=== PATIENT | female | born 1995 | race Caucasian/White ===

== ENCOUNTER 2022-11-21 14:30 | Day surgery (SDC) | payer OTHER ==
[2022-11-21] MEDS ORDERED: hydrALAZINE 20 MG/ML VIAL SLOW IVP PRN (15:03)
[2022-11-21 15:15] VITALS: BMI 25.8
[2022-11-21 15:38] LABS: Bilirubin Neg (Negative); Blood, Urine Negative (Negative); Glucose, Urine (Dipstick) Normal (Negative); Ketone, Urine Negative (Negative); Leukocyte Negative (Negative); Nitrite Negative (Negative); Protein, Urine (Dipstick) 15 mg/dl (Neg-Trace); Urobilinogen Normal mg/dL (Less than 2)
[2022-11-21 15:40] LABS: Clarity Hazy (Clear)
[2022-11-21 15:47] LABS: Bacteria/HPF 1+ HPF (None Seen); CAUTI Indications for Culture Pelvic or flank pain; RBC/HPF None Seen HPF (0-3); WBC/HPF 0-3 HPF (0-3)
[2022-11-21 15:49] LABS: Urine Culture Reflex No No
== END 2022-11-21 16:45 | disposition home or self-care (01) ==
LOC: CSHLD/OP 14:30
PROVIDERS: ATTEND Family Medicine
DX: O26.892 Other specified pregnancy related conditions, second trimester (principal); R10.9 Unspecified abdominal pain; Z3A.25 25 weeks gestation of pregnancy; Z79.82 Long term (current) use of aspirin
CPT/HCPCS: 81001; 99282

== ENCOUNTER 2022-11-29 15:44 | Emergency (ER) | payer OTHER ==
[2022-11-29] MEDS ORDERED: Amoxicillin/Potassium Clav 875 MG TAB ONE (16:23)
== END 2022-11-29 16:33 | disposition home or self-care (01) ==
LOC: CSHERS 15:44
DX: O99.612 Diseases of the digestive system complicating pregnancy, second trimester (principal); K04.7 Periapical abscess without sinus; Z3A.26 26 weeks gestation of pregnancy
CPT/HCPCS: 99282

== ENCOUNTER 2023-01-31 13:58 | Day surgery (SDC) | payer OTHER ==
[2023-01-31 14:30] VITALS: BMI 29.8
[2023-01-31] MEDS ORDERED: hydrALAZINE 20 MG/ML VIAL SLOW IVP PRN (15:21)
[2023-01-31] MEDS ORDERED: Cyclobenzaprine 10 MG TAB PO SCH (15:30)
[2023-01-31] MEDS ORDERED: Acetaminophen 500 MG TAB PO SCH (15:30)
[2023-01-31 15:45] LABS: Bilirubin Neg (Negative); Blood, Urine Negative (Negative); Clarity Slightly Cloudy (Clear); Glucose, Urine (Dipstick) Normal (Negative); Ketone, Urine Negative (Negative); Leukocyte 25 (Negative); Nitrite Negative (Negative); Protein, Urine (Dipstick) Negative (Neg-Trace)
[2023-01-31 15:52] LABS: Bacteria/HPF 3+ HPF (None Seen); CAUTI Indications for Culture Pregnancy; RBC/HPF 0-3 HPF (0-3)
[2023-01-31 15:54] LABS: Mucous/LPF 1+ LPF (<2+)
[2023-01-31 15:55] LABS: Urine Culture Reflex Yes Yes
== END 2023-01-31 16:30 | disposition home or self-care (01) ==
LOC: CSHLD/OP 13:58
PROVIDERS: ATTEND Family Medicine
DX: O26.893 Other specified pregnancy related conditions, third trimester (principal); R10.30 Lower abdominal pain, unspecified; M54.9 Dorsalgia, unspecified; O99.613 Diseases of the digestive system complicating pregnancy, third trimester; K21.9 Gastro-esophageal reflux disease without esophagitis; O23.43 Unspecified infection of urinary tract in pregnancy, third trimester; N39.0 Urinary tract infection, site not specified; R11.0 Nausea; Z3A.35 35 weeks gestation of pregnancy
CPT/HCPCS: 81001; 87086; 99283

== ENCOUNTER 2023-02-26 13:42 | Inpatient (IN) | payer OTHER ==
[~2023-02-26 13:42] MED LIST: Bupivacaine 0.25% HCL 30 ML VIAL ONE
[2023-02-26] MEDS ORDERED: Methylergonovine 0.2 MG/ML VIAL IM PRN (20:26)
[2023-02-26] MEDS ORDERED: Tranexamic Acid 1,000 MG/10 ML VIAL IVP PRN (20:26)
[2023-02-26] MEDS ORDERED: Diphenoxylate HCl/Atropine Tablet PO PRN (20:26)
[2023-02-26] MEDS ORDERED: Carboprost 250 MCG/ML AMP IM PRN (20:26)
[2023-02-26] MEDS ORDERED: Ibuprofen 800 MG TAB PO PRN (20:26)
[2023-02-26] MEDS ORDERED: Misoprostol 200 MCG TAB PR PRN (20:26)
[2023-02-26] MEDS ORDERED: hydrALAZINE 20 MG/ML VIAL SLOW IVP PRN (20:26)
[2023-02-26] MEDS ORDERED: Acetaminophen 500 MG TAB PO PRN (20:26)
[2023-02-26] MEDS ORDERED: HYDROcodone/Acetaminophen 5/325 mg Tablet PO PRN (20:26)
[2023-02-26] MEDS ORDERED: Ondansetron PF 4 MG/2 ML Vial IVP PRN (20:26)
[2023-02-26] MEDS ORDERED: Lidocaine 1% (PF) 30 ML VIAL SC PRN (20:26)
[2023-02-26] MEDS ORDERED: Promethazine HCl 25 MG/ML VIAL IM PRN (20:26)
[2023-02-26] MEDS ORDERED: NS w/ Oxytocin 30 units 500 ML IV SCH ×3 (20:30)
[2023-02-26] MEDS ORDERED: fentaNYL 50 mcg/mL 1 mL Vial SLOW IVP PRN (20:34)
[2023-02-26 23:22] LABS: Hemoglobin 7.3 g/dL (12.0-15.5); Mean Corpuscular HGB CONC 29.1 g/dL (32.0-36.0); Mean Corpuscular Hemoglobin 20.2 pg (27.0-33.0); Mean Corpuscular Volume 69.3 fl (81.6-98.3); Mean Platelet Volume 10.7 fl (7.4-10.4); Platelet Count 266 10x3/uL (150-450); RBC Distribution Width 20.6 % (11.5-14.5); Red Blood Cell (RBC) Count 3.62 10x6/uL (3.90-5.03); White Blood Cell (WBC) Count 12.6 10x3/uL (3.5-10.5)
[2023-02-26 23:24] VITALS: BMI 30.3
[2023-02-26 23:39] LABS: Syphilis Antibody Nonreactive (Nonreactive); Syphilis Antibody Index 0.02 S/CO (<1.00 Non-Reactive)
[2023-02-26 23:40] LABS: HBSAg Index 0.13 S/CO (0-0.99); Hep B Surf Ag - L&D Non-Reactive S/CO (NonReactive)
[2023-02-27] MEDS: Misoprostol 100 MCG TAB VAG SCH ×2 (03:06→17:05)
[2023-02-27] MEDS ORDERED: Fentanyl 2 mcg/Bup 0.1% Cadd 100 ML ONE (08:31)
[2023-02-27] MEDS ORDERED: diphenhydrAMINE 50 MG/ML VIAL IVP PRN ×2 (09:04→10:58)
[2023-02-27] MEDS ORDERED: Ondansetron PF 4 MG/2 ML Vial IVP PRN ×3 (09:04→15:59)
[2023-02-27] MEDS ORDERED: Acetaminophen 325 MG TAB PO PRN ×2 (09:04→10:58)
[2023-02-27] MEDS ORDERED: Lactated Ringer's 500 ML IV PRN ×2 (09:04→10:58)
[2023-02-27] MEDS ORDERED: Moisturizing Cream (Eucerin) 113 GM JAR TOP PRN ×2 (09:04→10:58)
[2023-02-27] MEDS ORDERED: ePHEDrine Sulfate 50 MG/10 ML VIAL SLOW IVP PRN ×2 (09:04→10:58)
[2023-02-27] MEDS ORDERED: Promethazine HCl 25 MG/ML VIAL IM PRN ×3 (09:04→15:59)
[2023-02-27] MEDS ORDERED: Naloxone HCl 0.4 mg/ml Vial IVP PRN ×4 (09:04→10:58)
[2023-02-27] MEDS ORDERED: Communication Order-Pharmacy FS SCH ×2 (09:15→11:00)
[2023-02-27] MEDS ORDERED: Fentanyl 2 mcg/Bupivacaine 0.1% Cassette 100 ML EPIDURAL SCH ×2 (09:15→11:00)
[2023-02-27] MEDS: Lactated Ringer's 1,000 ML IV SCH ×2 (09:35→17:06)
[2023-02-27] MEDS ORDERED: Misoprostol 200 MCG TAB ONE (13:40)
[2023-02-27] MEDS ORDERED: Bisacodyl 10 MG SUPP PR PRN (15:59)
[2023-02-27] MEDS ORDERED: diphenhydrAMINE 25 MG CAP PO PRN (15:59)
[2023-02-27] MEDS ORDERED: Benzocaine-Menthol 82.5 ML CAN TOP PRN (15:59)
[2023-02-27] MEDS ORDERED: Milk Of Magnesia 30 ML UDCUP PO PRN (15:59)
[2023-02-27] MEDS ORDERED: Lanolin Ointment 7 GM TUBE TOP PRN (15:59)
[2023-02-27] MEDS ORDERED: Boostrix 0.5 ML (Tdap) VIAL (>/=7 yrs of age) IM ONE (15:59)
[2023-02-27] MEDS ORDERED: hydrALAZINE 20 MG/ML VIAL SLOW IVP PRN (15:59)
[2023-02-27] MEDS: Ferrous Sulfate 325 MG TAB PO SCH (17:05)
[2023-02-27] MEDS: HYDROcodone/Acetaminophen 5/325 mg Tablet PO PRN ×2 (17:24→22:11)
[2023-02-27] MEDS: Docusate 100 MG CAP PO SCH (22:11)
[2023-02-27] MEDS: Ibuprofen 800 MG TAB PO SCH (22:12)
[2023-02-28] MEDS: Ibuprofen 800 MG TAB PO SCH ×3 (06:09→21:13)
[2023-02-28] MEDS: Prenatal Vitamin 1 TAB PO SCH (07:47)
[2023-02-28] MEDS: Docusate 100 MG CAP PO SCH ×2 (07:47→21:14)
[2023-02-28] MEDS: Ferrous Sulfate 325 MG TAB PO SCH ×2 (07:47→17:55)
[2023-02-28] MEDS: HYDROcodone/Acetaminophen 5/325 mg Tablet PO PRN ×3 (07:52→21:14)
[2023-03-01] MEDS: Ibuprofen 800 MG TAB PO SCH (06:10)
[2023-03-01] MEDS: Ferrous Sulfate 325 MG TAB PO SCH (08:33)
[2023-03-01] MEDS: Docusate 100 MG CAP PO SCH (08:33)
[2023-03-01] MEDS: Prenatal Vitamin 1 TAB PO SCH (08:33)
[2023-03-01] MEDS: HYDROcodone/Acetaminophen 5/325 mg Tablet PO PRN (08:33)
[2023-03-01 08:54] VITALS: BP 113/65; TEMP 98.5
== END 2023-03-01 14:25 | disposition home or self-care (01) | DRG 807 ==
LOC: CSHLD 20:09 → CSHPP 02-27 16:30
PROVIDERS: ADMIT Family Medicine; ATTEND Family Medicine
PROC: 10E0XZZ Delivery of Products of Conception, External Approach (ICD-10-PCS; principal; 2023-02-27)
PROC: 10907ZC Drainage of Amniotic Fluid, Therapeutic from Products of Conception, Via Natural or Artificial Opening (ICD-10-PCS; 2023-02-27)
PROC: 3E033VJ Introduction of Other Hormone into Peripheral Vein, Percutaneous Approach (ICD-10-PCS; 2023-02-27)
PROC: 3E0DXGC Introduction of Other Therapeutic Substance into Mouth and Pharynx, External Approach (ICD-10-PCS; 2023-02-27)
DX: O66.0 Obstructed labor due to shoulder dystocia (principal); Z37.0 Single live birth; Z3A.39 39 weeks gestation of pregnancy; O99.02 Anemia complicating childbirth; D64.9 Anemia, unspecified
CPT/HCPCS: 51702; 85027; 86780; 86850; 86900; 86901; 87340; J2590; J7120; S0020

== ENCOUNTER 2023-08-31 20:07 | Emergency (ER) | payer OTHER ==
[2023-08-31 20:55] LABS: Bilirubin Neg (Negative); Blood, Urine 25 (Negative); Clarity Clear (Clear); Glucose, Urine (Dipstick) Normal (Negative); Ketone, Urine 5 mg/dL (Negative); Leukocyte 100 (Negative); Nitrite Negative (Negative); Protein, Urine (Dipstick) Negative (Neg-Trace); Specific Gravity, Urine 1.005 (1.005-1.030); Urobilinogen Normal mg/dL (Less than 2); pH, Urine 6.5 (5.0-9.0)
[2023-08-31 21:03] LABS: #Basophils 0.1 10x3/uL (0.0-0.2); #Eosinphils 0.2 10x3/uL (0.0-0.5); #Monocytes 0.6 10x3/uL (0.0-1.1); #Neutrophils 5.1 10x3/uL (1.5-8.4); %Basophils 0.6 % (0.0-2.0); %Lymphocytes 38.6 % (18.0-47.0); %Monocytes 6.5 % (0.0-10.0); Hematocrit 34.8 % (34.9-44.5); Mean Corpuscular HGB CONC 31.6 g/dL (32.0-36.0); Mean Corpuscular Hemoglobin 24.6 pg (27.0-33.0); Mean Corpuscular Volume 77.9 fl (81.6-98.3); Mean Platelet Volume 10.1 fl (7.4-10.4); Platelet Count 318 10x3/uL (150-450); RBC Distribution Width 18.1 % (11.5-14.5); Red Blood Cell (RBC) Count 4.47 10x6/uL (3.90-5.03); White Blood Cell (WBC) Count 9.9 10x3/uL (3.5-10.5)
[2023-08-31 21:09] LABS: Pregnancy Test - Urine (BHCG) POSITIVE (Negative); Pregu Control Background? CLEAR/WHITE (CLR/WHITE); Pregu Control Bar Appear? YES (CONTROL BAR); Specific Gravity 1.005 (1.002-1.036)
[2023-08-31 21:13] LABS: CAUTI Indications for Culture Pelvic or flank pain; RBC/HPF None Seen HPF (0-3); Squamous Epithelial 0-3 HPF (0-3); WBC/HPF 0-3 HPF (0-3)
[2023-08-31 21:14] LABS: Bacteria/HPF None Seen HPF (None Seen)
[2023-08-31 21:15] LABS: Urine Culture Reflex No No
[2023-08-31 21:58] LABS: ALT (SGPT) 27 U/L (8-55); AST (SGOT) 21 U/L (5-34); Albumin 4.4 g/dL (3.5-5.0); Alkaline Phosphatase 44 U/L (40-110); Anion Gap 13 mmol/L (10-20); BUN (Urea Nitrogen) 9 mg/dL (7.0-18.7); Bilirubin, Total 0.6 mg/dL (0.2-1.2); Calc. Creatinine Clearance 0 mL/min (70-130); Calcium 9.7 mg/dL (7.8-10.44); Carbon Dioxide 23 mmol/L (22-29); Chloride 106 mmol/L (98-107); Estimated GFR 112; Globulin 2.7 g/dL (2.4-3.5); Glucose 91 mg/dL (70-105); Potassium 3.7 mmol/L (3.5-5.1); Protein, Total 7.1 g/dL (6.0-8.3); Sodium 138 mmol/L (136-145)
[2023-08-31] MEDS ORDERED: Acetaminophen 500 MG TAB ONE (22:24)
== END 2023-08-31 23:33 | disposition home or self-care (01) ==
LOC: CSHERS 20:07
DX: O20.0 Threatened abortion (principal); Z3A.01 Less than 8 weeks gestation of pregnancy
CPT/HCPCS: 36415; 76856; 80053; 81001; 81025; 84702; 85025; 86850; 86900; 86901

== ENCOUNTER 2023-09-02 11:44 | Emergency (ER) | payer OTHER ==
[2023-09-02 12:20] LABS: #Basophils 0.1 10x3/uL (0.0-0.2); #Eosinphils 0.2 10x3/uL (0.0-0.5); #Monocytes 0.4 10x3/uL (0.0-1.1); #Neutrophils 4.3 10x3/uL (1.5-8.4); %Basophils 0.8 % (0.0-2.0); %Eosinophils 1.9 % (0.0-6.0); %Lymphocytes 37.6 % (18.0-47.0); %Monocytes 5.4 % (0.0-10.0); %Neutrophils 53.9 % (40.0-75.0); Hematocrit 35.5 % (34.9-44.5); Hemoglobin 11.3 g/dL (12.0-15.5); Mean Corpuscular HGB CONC 31.8 g/dL (32.0-36.0); Mean Corpuscular Hemoglobin 24.9 pg (27.0-33.0); Mean Corpuscular Volume 78.4 fl (81.6-98.3); Mean Platelet Volume 10.5 fl (7.4-10.4); Platelet Count 341 10x3/uL (150-450); RBC Distribution Width 18.1 % (11.5-14.5); Red Blood Cell (RBC) Count 4.53 10x6/uL (3.90-5.03)
[2023-09-02 12:38] LABS: ALT (SGPT) 26 U/L (8-55); AST (SGOT) 23 U/L (5-34); Albumin 4.4 g/dL (3.5-5.0); Alkaline Phosphatase 44 U/L (40-110); Anion Gap 12 mmol/L (10-20); BUN (Urea Nitrogen) 7 mg/dL (7.0-18.7); Bilirubin, Total 0.7 mg/dL (0.2-1.2); Calc. Creatinine Clearance 0 mL/min (70-130); Carbon Dioxide 23 mmol/L (22-29); Chloride 107 mmol/L (98-107); Estimated GFR 113; Globulin 2.8 g/dL (2.4-3.5); Glucose 88 mg/dL (70-105); Lipase 42 U/L (8-78); Protein, Total 7.2 g/dL (6.0-8.3); Sodium 138 mmol/L (136-145)
== END 2023-09-02 13:34 | disposition home or self-care (01) ==
LOC: CSHERS 11:44
DX: O26.851 Spotting complicating pregnancy, first trimester (principal); Z3A.01 Less than 8 weeks gestation of pregnancy
CPT/HCPCS: 36415; 76856; 80053; 83690; 84702; 85025

== ENCOUNTER 2023-09-04 07:59 | Emergency (ER) | payer OTHER | END 2023-09-04 09:48 | disposition home or self-care (01) | LOC: CSHERS 07:59 | DX: O20.0 Threatened abortion (principal); Z3A.01 Less than 8 weeks gestation of pregnancy | CPT/HCPCS: 84702 ==

== ENCOUNTER 2023-09-15 13:19 | Emergency (ER) | payer OTHER ==
[2023-09-15 14:11] LABS: #Basophils 0.1 10x3/uL (0.0-0.2); #Eosinphils 0.1 10x3/uL (0.0-0.5); #Monocytes 0.4 10x3/uL (0.0-1.1); #Neutrophils 4.7 10x3/uL (1.5-8.4); %Basophils 0.7 % (0.0-2.0); %Eosinophils 1.6 % (0.0-6.0); %Lymphocytes 31.2 % (18.0-47.0); %Monocytes 5.4 % (0.0-10.0); %Neutrophils 60.8 % (40.0-75.0); Hematocrit 33.8 % (34.9-44.5); Hemoglobin 10.9 g/dL (12.0-15.5); Mean Corpuscular HGB CONC 32.2 g/dL (32.0-36.0); Mean Corpuscular Volume 77.5 fl (81.6-98.3); Mean Platelet Volume 10.6 fl (7.4-10.4); Platelet Count 271 10x3/uL (150-450); RBC Distribution Width 16.7 % (11.5-14.5); Red Blood Cell (RBC) Count 4.36 10x6/uL (3.90-5.03); White Blood Cell (WBC) Count 7.6 10x3/uL (3.5-10.5)
[2023-09-15 14:33] LABS: ALT (SGPT) 20 U/L (8-55); AST (SGOT) 21 U/L (5-34); Albumin 4.2 g/dL (3.5-5.0); Alkaline Phosphatase 44 U/L (40-110); Anion Gap 13 mmol/L (10-20); BUN (Urea Nitrogen) 8 mg/dL (7.0-18.7); Bilirubin, Total 0.7 mg/dL (0.2-1.2); Calc. Creatinine Clearance 0 mL/min (70-130); Calcium 9.2 mg/dL (7.8-10.44); Carbon Dioxide 21 mmol/L (22-29); Chloride 109 mmol/L (98-107); Estimated GFR 117; Globulin 2.3 g/dL (2.4-3.5); Glucose 113 mg/dL (70-105); Potassium 3.8 mmol/L (3.5-5.1); Protein, Total 6.5 g/dL (6.0-8.3); Sodium 139 mmol/L (136-145)
== END 2023-09-15 16:28 | disposition home or self-care (01) ==
LOC: CSHERS 13:19
DX: O20.9 Hemorrhage in early pregnancy, unspecified (principal); Z3A.01 Less than 8 weeks gestation of pregnancy
CPT/HCPCS: 36415; 76856; 80053; 84702; 85025; 86900; 86901

== ENCOUNTER 2023-09-25 07:44 | Emergency (ER) | payer OTHER ==
[2023-09-25 08:44] LABS: #Basophils 0.1 10x3/uL (0.0-0.2); #Eosinphils 0.3 10x3/uL (0.0-0.5); #Monocytes 0.5 10x3/uL (0.0-1.1); #Neutrophils 3.1 10x3/uL (1.5-8.4); %Basophils 0.7 % (0.0-2.0); %Eosinophils 3.6 % (0.0-6.0); %Lymphocytes 42.3 % (18.0-47.0); %Monocytes 7.4 % (0.0-10.0); %Neutrophils 45.6 % (40.0-75.0); Hematocrit 34.6 % (34.9-44.5); Mean Corpuscular HGB CONC 31.8 g/dL (32.0-36.0); Mean Corpuscular Hemoglobin 24.7 pg (27.0-33.0); Mean Corpuscular Volume 77.8 fl (81.6-98.3); Mean Platelet Volume 10.5 fl (7.4-10.4); Platelet Count 277 10x3/uL (150-450); RBC Distribution Width 16.6 % (11.5-14.5); Red Blood Cell (RBC) Count 4.45 10x6/uL (3.90-5.03); White Blood Cell (WBC) Count 6.9 10x3/uL (3.5-10.5)
[2023-09-25 09:08] LABS: ALT (SGPT) 18 U/L (8-55); AST (SGOT) 18 U/L (5-34); Albumin 4.1 g/dL (3.5-5.0); Alkaline Phosphatase 43 U/L (40-110); Anion Gap 14 mmol/L (10-20); BUN (Urea Nitrogen) 10 mg/dL (7.0-18.7); Bilirubin, Total 0.4 mg/dL (0.2-1.2); Calc. Creatinine Clearance 0 mL/min (70-130); Carbon Dioxide 23 mmol/L (22-29); Chloride 108 mmol/L (98-107); Estimated GFR 121; Globulin 2.5 g/dL (2.4-3.5); Glucose 91 mg/dL (70-105); Protein, Total 6.6 g/dL (6.0-8.3); Sodium 141 mmol/L (136-145)
[2023-09-25 09:28] LABS: Bilirubin Neg (Negative); Blood, Urine 250 (Negative); Glucose, Urine (Dipstick) Normal (Negative); Ketone, Urine Negative (Negative); Leukocyte 500 (Negative); Nitrite Negative (Negative); Protein, Urine (Dipstick) 30 mg/dl (Neg-Trace)
[2023-09-25 09:30] LABS: Clarity Hazy (Clear)
[2023-09-25 09:39] LABS: Bacteria/HPF 3+ HPF (None Seen); CAUTI Indications for Culture Pregnancy; WBC/HPF 21-50 HPF (0-3)
[2023-09-25 09:41] LABS: Urine Culture Reflex Yes Yes
[2023-09-25] MEDS ORDERED: Lactated Ringer's 1,000 ML IV SCH (12:15)
[2023-09-25] MEDS ORDERED: DOXYCYCLINE IVPB SCH (13:30)
[2023-09-25] MEDS ORDERED: ADMIXTURE FEE IVPB SCH (13:30)
[2023-09-25] MEDS ORDERED: SODIUM CHLORIDE IVPB SCH (13:30)
[2023-09-25] MEDS ORDERED: Bupivacaine PF 0.5% 30 ML VIAL ONE (14:24)
[2023-09-25] MEDS ORDERED: Ondansetron PF 4 MG/2 ML Vial ONE (14:49)
[2023-09-25] MEDS ORDERED: Dexamethasone 4 mg/ml Vial ONE (14:49)
[2023-09-25] MEDS ORDERED: fentaNYL 50 mcg/mL 1 mL Vial ONE (14:49)
[2023-09-25] MEDS ORDERED: PROPOFOL 20 ML ONE (14:49)
[2023-09-25] MEDS ORDERED: Midazolam HCl 2 mg/2 ml Vial ONE (14:49)
[2023-09-25] MEDS ORDERED: Lidocaine 1% PF 5 ML VIAL ONE (14:49)
[2023-09-25] MEDS ORDERED: Rocuronium Bromide 10 MG/ML (10ML VIAL) ONE (14:49)
[2023-09-25] MEDS ORDERED: HYDROmorphone 0.5 MG/0.5 ML SYRINGE ONE (14:55)
[2023-09-25] MEDS ORDERED: SUGAMMADEX SODIUM 200 MG/2 ML VIAL ONE (14:56)
[2023-09-25] MEDS ORDERED: EPINEPHrine 1 MG/ML AMP ONE (15:20)
[2023-09-25] MEDS ORDERED: Silver Nitrate Application 1 EACH ONE (15:20)
[2023-09-25] MEDS ORDERED: ePHEDrine Sulfate 50 MG/10 ML VIAL ONE (15:28)
== END 2023-09-25 12:35 | disposition admitted as inpatient to this hospital (09) ==
LOC: CSHERS 07:44
DX: O20.8 Other hemorrhage in early pregnancy (principal); Z3A.01 Less than 8 weeks gestation of pregnancy
CPT/HCPCS: 76856; 80053; 81001; 84702; 85025; 87086; 88305; J0171; J1100; J1170; J2250; J2405; J2704; J3010; J3490; J7050; S0020

== ENCOUNTER 2024-05-24 09:01 | Emergency (ER) | payer OTHER, SELFPAY ==
[2024-05-24 09:34] LABS: Bilirubin Neg (Negative); Blood, Urine 10 (Negative); Clarity Cloudy (Clear); Glucose, Urine (Dipstick) Normal (Negative); Ketone, Urine Negative (Negative); Leukocyte 500 (Negative); Nitrite Negative (Negative); Protein, Urine (Dipstick) 15 mg/dl (Neg-Trace); Specific Gravity, Urine 1.015 (1.005-1.030); pH, Urine 6.5 (5.0-9.0)
[2024-05-24 09:38] LABS: Pregnancy Test - Urine (BHCG) Negative (Negative)
[2024-05-24 09:39] LABS: Pregu Control Background? CLEAR/WHITE (CLR/WHITE); Pregu Control Bar Appear? YES (CONTROL BAR); Specific Gravity 1.015 (1.002-1.036)
[2024-05-24 09:49] LABS: Bacteria/HPF 2+ HPF (None Seen); CAUTI Indications for Culture Pregnancy; RBC/HPF 0-3 HPF (0-3); Trichomonas/HPF 1+ HPF (None Seen)
[2024-05-24 09:50] LABS: Mucous/LPF 1+ LPF (<2+); Urine Culture Reflex Yes Yes
[2024-05-24 09:56] LABS: ALT (SGPT) 18 U/L (8-55); AST (SGOT) 21 U/L (5-34); Alkaline Phosphatase 49 U/L (40-110); Anion Gap 13 mmol/L (10-20); BUN (Urea Nitrogen) 12 mg/dL (7.0-18.7); Bilirubin, Total 0.5 mg/dL (0.2-1.2); Calc. Creatinine Clearance 0 mL/min (70-130); Calcium 9.9 mg/dL (7.8-10.44); Carbon Dioxide 23 mmol/L (22-29); Chloride 107 mmol/L (98-107); Estimated GFR 109; Globulin 2.9 g/dL (2.4-3.5); Glucose 70 mg/dL (70-105); Potassium 3.8 mmol/L (3.5-5.1); Protein, Total 6.9 g/dL (6.0-8.3); Sodium 139 mmol/L (136-145)
[2024-05-24 09:58] LABS: #Basophils 0.05 10x3/uL (0.0-0.2); #Eosinphils 0.27 10x3/uL (0.0-0.5); #Monocytes 0.67 10x3/uL (0.0-1.1); #Neutrophils 3.23 10x3/uL (1.5-8.4); %Basophils 0.7 % (0.0-2.0); %Eosinophils 3.5 % (0.0-6.0); %Lymphocytes 44.9 % (18.0-47.0); %Monocytes 8.7 % (0.0-10.0); %Neutrophils 41.9 % (40.0-75.0); Hematocrit 38.6 % (34.9-44.5); Hemoglobin 13.1 g/dL (12.0-15.5); Mean Corpuscular HGB CONC 33.9 g/dL (32.0-36.0); Mean Corpuscular Hemoglobin 27.8 pg (27.0-33.0); Mean Platelet Volume 10.8 fL (7.4-10.4); Platelet Count 277 10x3/uL (150-450); RBC Distribution Width 16.2 % (11.5-14.5); Red Blood Cell (RBC) Count 4.71 10x6/uL (3.90-5.03); White Blood Cell (WBC) Count 7.7 10x3/uL (3.5-10.5)
[2024-05-24] MEDS ORDERED: Azithromycin 250 MG TAB ONE (10:39)
[2024-05-24] MEDS ORDERED: cefTRIAXone (ROCEPHIN) 500 MG VIAL ONE (10:40)
[2024-05-24] MEDS ORDERED: Sterile Water 10 ML ONE (10:41)
[2024-05-24 20:52] LABS: Chlam.trachomatis by PCR,Urine Not Detected (NotDetected); GC N.gonorrhoeae PCR,UrineVOID Not Detected (NotDetected)
== END 2024-05-24 10:50 | disposition home or self-care (01) ==
LOC: CSHERS 09:01
DX: N39.0 Urinary tract infection, site not specified (principal)
CPT/HCPCS: 36415; 80053; 81001; 81025; 85025; 87086; 87480; 87491; 87510; 87591; 87660; 96372; 99283; J0696